=== PATIENT | male | born 1945 | race Caucasian/White ===

== ENCOUNTER → 2018-10-23 12:13 | Outpatient (CLI) | payer MEDICARE, OTHER, SELFPAY ==
[2018-10-27 14:18] LABS: PSA Free % 30 % (calc) (> 25)
== END ==
PROVIDERS: PCP Internal Medicine; Visit Provider Specialist
DX: C61 Malignant neoplasm of prostate (principal); N40.1 Benign prostatic hyperplasia with lower urinary tract symptoms
CPT/HCPCS: 36415; 84153; 84154

== ENCOUNTER → 2019-11-09 13:15 | Outpatient (CLI) | payer MEDICARE, OTHER, SELFPAY ==
[2019-11-10 10:08] LABS: PSA Free % 39.4 % (.); PSA, Total 3.3 ng/mL (0.0-4.0)
== END ==
PROVIDERS: PCP Internal Medicine; Referring Provider Specialist; Visit Provider Specialist
DX: R97.20 Elevated prostate specific antigen [PSA] (principal)
CPT/HCPCS: 36415; 84153; 84154

== ENCOUNTER → 2020-07-04 15:24 | Outpatient (CLI) | payer MEDICARE, OTHER, SELFPAY ==
[2020-07-04] MEDS: COVID-19 VACC #1, MRNA(MOD) 100 MCG/0.5 ML VIAL IM (15:32)
== END ==
PROVIDERS: PCP Internal Medicine; Visit Provider Internal Medicine
DX: Z23 Encounter for immunization (principal)
CPT/HCPCS: 0011A; 91301

== ENCOUNTER → 2020-08-01 15:42 | Outpatient (CLI) | payer MEDICARE, OTHER, SELFPAY ==
[2020-08-01] MEDS: COVID-19 VACC #2, MRNA(MOD) 100 MCG/0.5 ML VIAL IM (15:54)
== END ==
PROVIDERS: PCP Internal Medicine; Visit Provider Internal Medicine
DX: Z23 Encounter for immunization (principal)
CPT/HCPCS: 0012A; 91301

== ENCOUNTER → 2021-05-01 08:13 | Outpatient (CLI) | payer MEDICARE, OTHER, SELFPAY ==
[2021-05-01] MEDS: COVID-19 VACC #3, MRNA(MOD) 50 MCG/0.25 ML VIAL IM (08:37)
== END ==
PROVIDERS: PCP Internal Medicine; Visit Provider Internal Medicine
DX: Z23 Encounter for immunization (principal)
CPT/HCPCS: 0013A; 91301

== ENCOUNTER → 2021-08-28 08:46 | Outpatient (CLI) | payer MEDICARE, OTHER, SELFPAY ==
[2021-08-29 08:38] LABS: PSA Free % 39.7 % (.); PSA, Total 3.1 ng/mL (0.0-4.0)
== END ==
PROVIDERS: PCP Internal Medicine; Referring Provider Specialist; Visit Provider Specialist
DX: R97.20 Elevated prostate specific antigen [PSA] (principal)
CPT/HCPCS: 36415; 84153; 84154

== ENCOUNTER → 2021-11-02 15:19 | Outpatient (CLI) | payer MEDICARE, OTHER, SELFPAY ==
[2021-11-02 16:33] LABS: Hematocrit 39.2 % (41-53); Hemoglobin 13.9 g/dL (13.5-17.5); Mean Corpuscular HGB Conc 35.3 % (30-36); Mean Corpuscular Hemoglobin 32.6 PG (26-34); Mean Corpuscular Volume 92.3 fL (80-100); Platelet Count 230 X10^3/uL (150-400); Red Blood Cell Count 4.25 X10^6/uL (4.5-5.9); Red Cell Distribution Width 13.2 % (11.6-14.8); White Blood Cell Count 4.4 X10^3/uL (4.5-11.0)
[2021-11-02 16:48] LABS: Alanine Aminotransferase 24 IU/L (<50); Albumin 4.2 g/dL (3.5-5.0); Albumin Globulin Ratio 1.4 (1.0-2.8); Alkaline Phosphatase 72 U/L (38-126); Aspartate Aminotransferase 34 IU/L (17-59); BUN Creatinine Ratio 17.7 (6-22); Bilirubin Total 0.9 mg/dL (0.2-1.3); Blood Urea Nitrogen 20 mg/dL (9-20); Calcium 8.8 mg/dL (8.4-10.2); Carbon Dioxide 28 mmol/L (22-32); Chloride 102 mmol/L (98-107); Cholesterol 194 mg/dL (140-199); Estimated Glomerular Filt Rate > 60 mL/min (>60); Globulin 3.1 g/dL (1.7-4.1); Glucose 89 mg/dL (80-110); HDL Cholesterol 60 mg/dL (40-60); HEMOLYSIS < 15 (0-50); LDL Cholesterol Calculated 117 mg/dL (<100); Potassium 4.1 mmol/L (3.4-5.1); Sodium 137 mmol/L (137-145); Total Protein 7.3 g/dL (6.3-8.2); Triglycerides 83 mg/dL (35-150)
[2021-11-02 17:18] LABS: TSH w/ Reflex to FT4 1.46 uIU/mL (0.47-4.68)
== END ==
PROVIDERS: PCP Internal Medicine; Referring Provider Internal Medicine; Visit Provider Internal Medicine
DX: E78.2 Mixed hyperlipidemia (principal)
CPT/HCPCS: 36415; 80053; 80061; 84443; 85027

== ENCOUNTER → 2022-02-10 10:50 | Outpatient (CLI) | payer MEDICARE, OTHER, SELFPAY ==
[2022-02-10 13:47] LABS: COVID19 -Nasal RAPID Negative (Negative)
== END ==
PROVIDERS: PCP Internal Medicine; Visit Provider Surgery
DX: Z01.812 Encounter for preprocedural laboratory examination (principal); Z20.822 Contact with and (suspected) exposure to COVID-19
CPT/HCPCS: 87635; C9803

== ENCOUNTER 2022-02-11 07:31 | Day surgery (SDC) | payer MEDICARE, OTHER, SELFPAY ==
[2022-02-11 07:52] VITALS: BP 113/67; PULSE 68; RESP 16; TEMP 36.6; O2SAT 98; BMI 23.6
[2022-02-11] MEDS: LACTATED RINGERS 1,000 ML 42 ML IV (08:09)
--- NOTE | 2022-02-11 08:54 | PM.HP.1 ---
History of Present Illness History of Present Illness Date Patient Seen: 02/11/22 Time Patient Seen: 08:55 Chief complaint: SCREENING COLONOSCOPY Narrative: Tripp is a 76-year-old man who had a colonoscopy by Dr. Garcia roughly 12 years ago. He believes no polyps were found. His mother had colon cancer at age 90 but no other first-degree relatives have had colon cancer that he is aware of. Patient History Medical History (Updated 02/11/22 @ 08:55 by José Luis Oliveros MD) Advanced directives, counseling/discussion Benign prostatic hyperplasia with urinary obstruction Hearing loss Herpes labialis Hip replacement planned History of elevated PSA Medicare annual wellness visit, initial Mixed hyperlipidemia Surgical History (Updated 11/08/21 @ 18:55 by Valerie Howard) Anesthesia H/O hernia repair History of hip replacement (~2016) Family & Social History Family History (Updated 11/08/21 @ 18:57 by Valerie Howard) Father Prostate cancer Mother Diabetes mellitus History of heart disease Brother Skin cancer Social History: household members none Tobacco & Substance use: Smoking Status Never smoker alcohol intake current alcohol intake frequency 0-2 drinks per day Substance Use Type does not use Meds Home Medications and Allergies Home Medications Medication Instructions Recorded Confirmed Type dutasteride 0.5 mg capsule 0.5 mg PO DAILY 09/09/21 02/11/22 History acyclovir 400 mg tablet 400 mg PO TID #21 tabs 11/02/21 02/11/22 Rx valacyclovir 500 mg tablet 500 mg PO BID PRN Herpes 11/02/21 02/11/22 History Allergies Allergy/AdvReac Type Severity Reaction Status Date / Time amoxicillin Allergy Severe Rash Verified 02/11/22 07:49 Exam Vital Signs (past 8 hours): - 02/11/22 07:52 Temperature 97.8 F Pulse Rate 68 Respiratory Rate 16 Blood Pressure 113/67 Pulse Oximetry 98 Oxygen Delivery Method Room Air Oxygen Delivery Method Room Air Const General: healthy appearing Resp Effort & Inspection: normal respiratory effort Assessment & Plan Assessment and plan (1) Colon cancer screening: Status: Acute Plan Risks and benefits of colonoscopy reviewed and he would like to proceed. Time Spent With Patient Critical Care time: I spent a total of [] minutes of critical care time on this patient's care today; this time is exclusive of procedural time.
[2022-02-11] MEDS: fentaNYL 100 MCG/2 ML INJ 175 MCG IV (09:13)
[2022-02-11] MEDS: MIDAZOLAM 5 MG/5 ML VIAL IV (09:13)
--- NOTE | 2022-02-11 09:32 | PM.OP.COLON ---
Operative Date/Time/Diagnoses Date of procedure: 02/11/22 Time of procedure: 09:32 Pre-op diagnosis: Colon cancer screening Post-op diagnosis: same Procedure & Clinicians Study performed: Colonoscopy Same procedure as scheduled: Yes Indications: Colon cancer screening Surgeon: José Luis Oliveros Procedure Notes Procedure in detail: Surgeon: José Luis Oliveros MD Procedure: The patient was brought to the endoscopy suite, placed in left lateral decubitus position. The patient was connected to monitoring devices. A time-out was performed. Sedation was administered. Once the patient was adequately sedated, a digital rectal exam was performed and was normal. The scope was then inserted and advanced to the cecum where the appendiceal orifice was identified and photographed. The scope was then slowly withdrawn over greater than 6 minutes. The mucosa was thoroughly inspected. There were no polyps. There was scattered diverticulosis greatest in the sigmoid colon. The scope was retroflexed in the rectum. No abnormalities were noted there. The scope was straightened and removed. The patient was awakened and brought to recovery. Versed: 9 mg Fentanyl: 175 mcg EBL: 0 Findings: Diverticulosis Scope withdrawal time: 13 Sedation minutes: 31 Post-procedure Disposition: PACU
[2022-02-11 09:39] VITALS: BP 100/59; PULSE 71; RESP 7; TEMP 36.5; O2SAT 97
[2022-02-11 09:41] VITALS: BP 105/60; PULSE 74; RESP 15; O2SAT 97
[2022-02-11 09:46] VITALS: BP 100/60; PULSE 71; RESP 14; TEMP 36.4; O2SAT 97
--- NOTE | 2022-02-11 09:46 | SUR.PHASEI ---
Stable PACU stay , tolerated ice chips pt request, refused offers of water, juice and coffee.
[2022-02-11 09:53] VITALS: BP 111/67; PULSE 79; RESP 23; TEMP 36.4; O2SAT 97
[2022-02-11 10:08] VITALS: BP 110/72; PULSE 71; RESP 16; TEMP 36.6; O2SAT 96
== END 2022-02-11 10:30 | disposition home or self-care (01) ==
PROVIDERS: PCP Internal Medicine; Referring Provider Surgery; Visit Provider Surgery
PROC: 0DJD8ZZ Inspection of Lower Intestinal Tract, Via Natural or Artificial Opening Endoscopic (ICD-10-PCS; CPT 45378; principal; 2022-02-11 08:30)
DX: Z12.11 Encounter for screening for malignant neoplasm of colon (principal); Z80.0 Family history of malignant neoplasm of digestive organs; K57.30 Diverticulosis of large intestine without perforation or abscess without bleeding; E78.2 Mixed hyperlipidemia; N40.1 Benign prostatic hyperplasia with lower urinary tract symptoms; N13.9 Obstructive and reflux uropathy, unspecified
CPT/HCPCS: G0105; 99152; 99153; J2250; J3010

== ENCOUNTER → 2022-09-06 09:35 | Outpatient (CLI) | payer MEDICARE, OTHER, SELFPAY ==
[2022-09-07 05:29] LABS: Prostate Specific Antigen 3.05 ng/mL (0.10-4.00)
== END ==
PROVIDERS: PCP Internal Medicine; Referring Provider Specialist; Visit Provider Specialist
DX: R97.20 Elevated prostate specific antigen [PSA] (principal)
CPT/HCPCS: 36415; 84153

== ENCOUNTER → 2023-10-07 10:57 | Outpatient (CLI) | payer MEDICARE, OTHER, SELFPAY ==
[2023-10-07 14:01] LABS: Prostate Specific Antigen 2.86 ng/mL (0.10-4.00)
== END ==
PROVIDERS: PCP Internal Medicine; Referring Provider Specialist; Visit Provider Specialist
DX: N40.1 Benign prostatic hyperplasia with lower urinary tract symptoms (principal); N13.8 Other obstructive and reflux uropathy; R97.20 Elevated prostate specific antigen [PSA]
CPT/HCPCS: 36415; 84153